=== PATIENT | female | born 1950 | race African-American/Black ===

== ENCOUNTER → 2021-12-02 | Outpatient (CLI) | payer MEDICARE, BC ==
[~2021-12-02] MED LIST: AMLO-186 PO; ATOR20TA58 PO; HYDR-2765 PO; HYDR12.575 PO; HYDR12.58 PO; METF500T16 PO; MULT-650 PO; OMEP40CA7 PO; OXYC-325 PO; OXYC1TAB15 PO; POTA-121 PO; SENN-212 PO; WARF4TAB9 PO
[2021-12-02 09:41] LABS: ALBUMIN 3.3 g/dL (3.4-5.0); CALCIUM 9.4 mg/dL (8.5-10.1); CREATININE 0.9 mg/dL (0.6-1.0); GFR 74.9
[2021-12-02 10:17] LABS: BASO % 1 % (0-3); EOS # 0.1 x10^3/uL (0.0-0.7); EOS % 2 % (0-3); HEMATOCRIT 42.8 % (36.0-47.0); HEMOGLOBIN 13.5 g/dL (12.0-15.5); LYMPH # 1.4 x10^3/uL (1.0-4.8); LYMPH % 24 % (24-48); MEAN CORPUSCULAR HEMOGLOBIN 26 pg (25-35); MEAN CORPUSCULAR HGB CONC 31 g/dL (31-37); MEAN CORPUSCULAR VOLUME 84 fL (79-100); MONO # 0.4 x10^3/uL (0.0-1.1); MONO % 8 % (0-9); NEUT # 3.7 x10^3/uL (1.8-7.7); NEUT % 65 % (31-73); PLATELET COUNT 333 x10^3/uL (140-400); RED BLOOD COUNT 5.09 x10^6/uL (3.50-5.40); RED CELL DISTRIBUTION WIDTH 14.1 % (11.5-14.5); WHITE BLOOD COUNT 5.6 x10^3/uL (4.0-11.0)
[2021-12-02 10:47] LABS: PROTHROMBIN TIME PATIENT 12.2 SEC (11.7-14.0)
--- NOTE | 2021-12-02 13:04 | EKG ---
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
--- NOTE | 2021-12-02 13:23 | RAD ---
EXAMINATION: XR CHEST 2V CLINICAL HISTORY: Preoperative clearance. EXAM DATE/TIME: 12/02/2021 12:30 PM COMPARISON: None FINDINGS: Lines, Tubes, and Devices: None. Cardiomediastinal Silhouette: Normal heart size. Tortuosity of the thoracic aorta. Lungs and Pleura: No evidence of focal airspace consolidation or pleural effusion. Pulmonary vasculat ure unremarkable. Bones and Soft Tissues: Degenerative changes in the thoracic spine. IMPRESSION: No evidence of acute cardiopulmonary abnormality. Electronically signed by: Mitchel Morgan DO (12/02/2021 1:20 PM) [facility]
[2021-12-03 02:14] LABS: HEMOGLOBIN A1C 6.3 % (4.8-5.6)
== END ==
LOC: SURGPAT 12:27
PROVIDERS: ATTEND Orthopaedic Surgery Sports Medicine
DX: Z01.818 Encounter for other preprocedural examination (principal); M17.12 Unilateral primary osteoarthritis, left knee; I10 Essential (primary) hypertension; M47.819 Spondylosis without myelopathy or radiculopathy, site unspecified; Z79.899 Other long term (current) drug therapy
CPT/HCPCS: 36415; 71046; 80048; 82040; 82306; 83036; 85025; 85610; 85651; 85730; 87641; 93005

== ENCOUNTER 2021-12-21 13:46 | Inpatient (IN) | payer MEDICARE, BC ==
[~2021-12-21] VITALS: Ht 170.2 cm; Wt 82.3 kg
[~2021-12-21 13:46] MED LIST changes: -HYDR12.575 PO; -OXYC1TAB15 PO; -WARF4TAB9 PO
[2021-12-21] MEDS ORDERED: fentaNYL PF VIAL 100 MCG/2 ML VIAL IVP ONE (14:15)
[2021-12-21] MEDS ORDERED: KETOROLAC 30 MG/ML VIAL. IVP ONE (14:15)
--- NOTE | 2021-12-21 14:24 | PHYS DOC ---
Past Medical History Past Surgical History: Hysterectomy, Knee Replacement, Tubal ligation, Other Additional Past Surgical Histo: GASTRIC SLEEVE (ANNMARIE CERDA MEDICATION SPECIALIST) Smoking Status: Current Some Day Smoker (ANNMARIE CERDA MEDICATION SPECIALIST) General Adult EDM: Chief Complaint: FEVER HPI: HPI: Patient is a 71 year old female who presents with fever for the last 4 days. She had a knee replacement done by Dr. Meyer on December 02 and was discharged on December 10 to rehab and got home 5 days ago. She states she is unable to keep her fever away. She states she also has a lot of pain and has been taking her Percocet but she is still having pain. States the pain mainly is in the knee itself but down into the dorado area too. Patient states she called the doctor and they stated for her to come into the emergency room to be checked. She does have a scheduled postoperative appointment on this on Thursday. Patient states she last took her Percocet about 1030 this morning. She does have a low- grade fever upon arrival. Patient has a history of hypertension, high cholesterol, DJD, gastric sleeve, hysterectomy, tubal ligation and smoking. (ANNMARIE CERDA MEDICATION SPECIALIST) Review of Systems: Review of Systems: Constitutional: + fever or +chills. [] Eyes: Denies change in visual acuity. [] HENT: Denies nasal congestion or sore throat. [] Respiratory: Denies cough or shortness of breath. [] Cardiovascular: Denies chest pain or edema. [] GI: Denies abdominal pain, nausea, vomiting, bloody stools or diarrhea. [] : Denies dysuria. [] Musculoskeletal: Denies back pain or +left knee joint pain. [] Integument: Denies rash. +redness to medial knee [] Neurologic: Denies headache, focal weakness or sensory changes. [] Endocrine: Denies polyuria or polydipsia. [] Lymphatic: Denies swollen glands. [] Psychiatric: Denies depression or anxiety. [] (ANNMARIE CERDA MEDICATION SPECIALIST) Heart Score: C/O Chest Pain: No (ANNMARIE CERDA APRN) Current Medications: Current Medications Medications (Trade) Dose Ordered Sig/Marek Start Time Stop Time Status Last Admin Dose Admin Fentanyl Citrate (Fentanyl 2ml Vial) 50 mcg 1X ONCE 12/21/21 14:15 12/21/21 14:16 UNV (ANNMARIE CERDA APRN) Allergies: Allergies: Allergies Coded Allergies Type Severity Reaction Last Updated Verified Penicillins Allergy Intermediate 12/10/21 Yes (ANNMARIE CERDA APRN) Physical Exam: PE: Constitutional: Well developed, well nourished, no acute distress, non-toxic ge earance. [] HENT: Normocephalic, atraumatic, bilateral external ears normal, oropharynx moist, no oral exudates, nose normal. [] Eyes: PERRLA, EOMI, conjunctiva normal, no discharge. [] Neck: Normal range of motion, no tenderness, supple, no stridor. [] Cardiovascular:Heart rate regular rhythm, no murmur [] Lungs & Thorax: Bilateral breath sounds clear to auscultation [] Abdomen: Bowel sounds normal, soft, no tenderness, no masses, no pulsatile masses. [] Skin: Warm, dry, medial left knee erythema, no rash. [] Back: No tenderness, no CVA tenderness. [] Extremities: Slight over incision and down into dorado tenderness, no cyanosis, no clubbing, ROM intact but painful, 1+ edema. [] Neurologic: Alert and oriented X 3, normal motor function, normal sensory function, no focal deficits noted. [] Psychologic: Affect normal, judgement normal, mood normal. [] (ANNMARIE CERDA APRN) Current Patient Data: Vital Signs: Vital Signs Date Time Temp Pulse Resp B/P (MAP) Pulse Ox O2 Delivery O2 Flow Rate FiO2 12/21/21 13:50 99.3 98 22 129/68 (88) 95 Room Air 99.3 (ANNMARIE CERDA APRN) EKG: EKG: [] (ANNMARIE CERDA APRN) Radiology/Procedures: Radiology/Procedures: [] Impression: [facility] [address] [place] [address] IMAGING REPORT Signed PATIENT: KIKI MULTANI ACCOUNT: [id number] : 1950 LOCATION: ER AGE: 71 SEX: F EXAM STATUS: REG ER ORD. PHYSICIAN: ANNMARIE CERDA APRN REASON: PAIN POSTOPERATIVELY WITH FEVER PROCEDURE: KNEE LEFT 4V XR KNEE _4 VIEWS WITH PATELLA_LT Clinical Indication: Reason: PAIN POSTOPERATIVELY WITH FEVER / Spl. Instructions: / History: Comparison: Left knee, 2 views December 10, 2021. Findings: There is left hip arthroplasty. The alignment remains anatomic. Surgical drain has been removed. There is no acute fracture. Resurfacing of the patella. There is patellar enthesophyte. There are patellar osteophytes. Patella in anatomic position. No patellar tilt or subluxation on sunrise view. There is mild to moderate joint effusion. IMPRESSION: 1. No acute bone abnormality. 2. Mild to moderate joint effusion. Electronically signed by: George Dominguez MD (12/21/2021 3:19 PM) [facility] DICTATED and SIGNED BY: GEORGE DOMINGUEZ MD DATE: 12/21/21 [id number] [facility] [address], [place] [id number] IMAGING REPORT Signed PATIENT: KIKI MULTANI ACCOUNT: [id number] : 1950 LOCATION: ER AGE: 71 SEX: F EXAM STATUS: REG ER ORD. PHYSICIAN: ANNMARIE CERDA APRN REASON: post knee replacement leg pain PROCEDURE: VENOUS LOWER EXTREMITY LEFT EXAM: Left lower extremity venous Doppler. HISTORY: Left lower extremity pain/swelling. Recent orthopedic surgery, fever. COMPARISON: None. FINDINGS: Grayscale and Doppler analysis of the left lower extremity deep venous system was performed with graded compression and augmentation. The common femoral, greater saphenous, superficial femoral, popliteal and calf veins were assessed. There is no evidence of deep venous thrombosis. IMPRESSION: 1. No evidence of deep venous thrombosis. Electronically signed by: Michelle Salcido MD (12/21/2021 4:21 PM) [id number] DICTATED and SIGNED BY: LAKEISHA SALCIDO MD DATE: 12/21/21 [id number] [facility] [address] [place], [place] [id number] IMAGING REPORT Signed PATIENT: KIKI MULTANI ACCOUNT: [id number] : 1950 LOCATION: ER AGE: 71 SEX: F EXAM STATUS: REG ER ORD. PHYSICIAN: ANNMARIE CERDA APRN REASON: fever PROCEDURE: PORTABLE CHEST 1V EXAM: Chest, single view. HISTORY: Fever COMPARISON: 12/02/2021 FINDINGS: A frontal view of the chest is obtained. There is no infiltrate, pleural effusion or pneumothorax. The heart is normal in size. There is a small hiatal hernia. IMPRESSION: No acute pulmonary finding. Electronically signed by: Laura Simons MD (12/21/2021 4:17 PM) [facility] DICTATED and SIGNED BY: LAURA SIMONS MD DATE: 12/21/21 [id number] (ANNMARIE CERDA APRN) Course & Med Decision Making: Course & Med Decision Making Pertinent Labs and Imaging studies reviewed. (See chart for details) See HPI. Alert and oriented x4. Ambulatory with a walker. Incision line is not reddened and there is no drainage and does not appear infected. She does have some redness that looks like it could be a hematoma to the medial left knee. There does appear to be some warmth to that area also. Also there is so me redness going down over the dorado area. She has a low-grade fever at this time. Pedal pulse strong and present. 1+ edema at the knee. Tenderness just over the incision area and down over the dorado bone. She does have range of motion in the knee but is painful. CRP and ESR elevated. I spoke to Dr. Fuchs and he states to meet the patient but do not start antibiotics as he will drain the knee and send it off for culture tomorrow morning. Patient admitted to the hospitalist. [] (ANNMARIE CERDA APRN) Dragon Disclaimer: Dragon Disclaimer: This electronic medical record was generated, in whole or in part, using a voice recognition dictation system. (ANNMARIE CERDA APRN) Departure Departure Impression: Primary Impression: Post-operative infection Qualified Codes: T81.41XA - Infection following a procedure, superficial incisional surgical site, initial encounter Additional Impression: Fever Qualified Codes: R50.9 - Fever, unspecified Disposition: ADMITTED INPATIENT Admitting Physician: PNUEET (ANNMARIE CERDA APRN) Condition: STABLE Referrals: MELANIE DOS SANTOS MD (PCP) ANNMARIE CERDA APRN Dec 21, 2021 14:24 LAKEISHA LEE MD Dec 22, 2021 16:14
[2021-12-21 14:51] LABS: BASO % 1 % (0-3); EOS # 0.1 x10^3/uL (0.0-0.7); EOS % 1 % (0-3); HEMATOCRIT 33.9 % (36.0-47.0); HEMOGLOBIN 10.9 g/dL (12.0-15.5); LYMPH # 0.7 x10^3/uL (1.0-4.8); LYMPH % 8 % (24-48); MEAN CORPUSCULAR HEMOGLOBIN 27 pg (25-35); MEAN CORPUSCULAR HGB CONC 32 g/dL (31-37); MEAN CORPUSCULAR VOLUME 82 fL (79-100); MONO # 0.6 x10^3/uL (0.0-1.1); MONO % 6 % (0-9); NEUT # 7.7 x10^3/uL (1.8-7.7); NEUT % 85 % (31-73); PLATELET COUNT 500 x10^3/uL (140-400); RED BLOOD COUNT 4.13 x10^6/uL (3.50-5.40); WHITE BLOOD COUNT 9.1 x10^3/uL (4.0-11.0)
[2021-12-21 15:01] LABS: CALCIUM 8.8 mg/dL (8.5-10.1); GFR 66.3; POTASSIUM 3.9 mmol/L (3.5-5.1)
[2021-12-21 15:10] LABS: ALBUMIN 2.5 g/dL (3.4-5.0); ALBUMIN/GLOBULIN RATIO 0.5 (1.0-1.7); C-REACTIVE PROTEIN 144.3 mg/L (0-3.3); TOTAL BILIRUBIN 0.6 mg/dL (0.2-1.0); TOTAL PROTEIN 7.6 g/dL (6.4-8.2)
--- NOTE | 2021-12-21 15:22 | RAD ---
XR KNEE _4 VIEWS WITH PATELLA_LT Clinical Indication: Reason: PAIN POSTOPERATIVELY WITH FEVER / Spl. Instructions: / History: Comparison: Left knee, 2 views December 10, 2021. Findings: There is left hip arthroplasty. The alignment remains anatomic. Surgical drain has been removed. Ther e is no acute fracture. Resurfacing of the patella. There is patellar enthesophyte. There are patella r osteophytes. Patella in anatomic position. No patellar tilt or subluxation on sunrise view. There i s mild to moderate joint effusion. IMPRESSION: 1. No acute bone abnormality. 2. Mild to moderate joint effusion. Electronically signed by: George Dominguez MD (12/21/2021 3:19 PM) [facility]
[2021-12-21 15:36] LABS: INFLUENZA A PATIENT NEGATIVE (NEGATIVE); INFLUENZA B PATIENT NEGATIVE (NEGATIVE)
[2021-12-21 15:50] LABS: BILIRUBIN,URINE NEGATIVE (NEG); CLARITY,URINE CLOUDY; COLOR,URINE YELLOW; NITRITE,URINE NEGATIVE (NEG); PH,URINE 5.5 (<5.0-8.0); PROTEIN,URINE NEGATIVE (NEG-TRACE)
[2021-12-21 15:54] LABS: BACTERIA,URINE FEW /HPF (0-FEW); RBC,URINE 0 /HPF (0-2); WBC,URINE OCC /HPF (0-4)
[2021-12-21] MEDS ORDERED: ACETAMINOPHEN 325 MG TABLET. PO PRN (16:15)
--- NOTE | 2021-12-21 16:20 | RAD ---
EXAM: Chest, single view. HISTORY: Fever COMPARISON: 12/02/2021 FINDINGS: A frontal view of the chest is obtained. There is no infiltrate, pleural effusion or pneumo thorax. The heart is normal in size. There is a small hiatal hernia. IMPRESSION: No acute pulmonary finding. Electronically signed by: Laura Pratt MD (12/21/2021 4:17 PM) [facility]
--- NOTE | 2021-12-21 16:24 | RAD ---
EXAM: Left lower extremity venous Doppler. HISTORY: Left lower extremity pain/swelling. Recent orthopedic surgery, fever. COMPARISON: None. FINDINGS: Grayscale and Doppler analysis of the left lower extremity deep venous system was performed with graded compression and augmentation. The common femoral, greater saphenous, superficial femoral , popliteal and calf veins were assessed. There is no evidence of deep venous thrombosis. IMPRESSION: 1. No evidence of deep venous thrombosis. Electronically signed by: Michelle Salcido MD (12/21/2021 4:21 PM) [facility]ACQUI
--- NOTE | 2021-12-21 16:53 | PDOC2 ---
CONSULT Date of Consult Date of Consult DATE: 12/21/21 TIME: 16:52 History of Present Illness Reason for Visit: Patient is a 71-year old female who presents with fever for the last 4 days. She had a knee replacement done by Dr. Meyer on December 10. She states she is unable to keep her fever away. She states she also has a lot of pain and has been taking her Percocet but she is still having pain. States the pain mainly is in the knee itself but down into the dorado area too. She does have a scheduled postoperative appointment on this on Thursday. She did have a temperature of 99.3 on arrival. Patient has a history of hypertension, high cholesterol, DJD, gastric sleeve, hysterectomy, tubal ligation and smoking. Since admission she has not had a fever. Past Medical History Past Medical History Recent knee replacement; polypharmacy; anticoagulation after her recent surgery, she is on Coumadin; hyperlipidemia; chronic pain; arthritis; hypertension and GERD. Patient has a history of hypertension, high cholesterol, DJD, gastric sleeve, hysterectomy, tubal ligation and smoking. Past Surgical History Past Surgical History: Total knee replacement, Hysterectomy Family History Family History GERD Social History No ALCOHOL: none Lives: with Family Current Problem List Problem List Problems Medical Problems: (1) Fever Status: Acute (2) Post-operative infection Status: Acute Current Medications Current Medications Current Medications Fentanyl Citrate (Fentanyl 2ml Vial) 50 mcg 1X ONCE IVP Last administered on 12/21/21at 14:52; Start 12/21/21 at 14:15; Stop 12/21/21 at 14:16; Status DC Ketorolac Tromethamine (Toradol 30mg Vial) 30 mg 1X ONCE IVP Last administered on 12/21/21at 14:52; Start 12/21/21 at 14:15; Stop 12/21/21 at 14:16; Status DC Acetaminophen (Tylenol) 650 mg PRN Q4HRS PRN PO FEVER > 100.3'F; Start 12/21/21 at 16:15; Stop 12/22/21 at 16:14 Active Scripts Active Percocet 5-325 mg Tablet (Oxycodone HCl/Acetaminophen) 1 Each Tablet 1 Tab PO QIDPRN PRN MDD 4 Tablet(s) Reported Centrum Silver Women Tablet (Multivits-Min/Iron/FA/Lutein) 1 Each Tablet 1 Each PO DAILY Stool Softener Tablet (Sennosides/Docusate Sodium) 1 Each Tablet 1 Each PO DAILY Klor-Con M20 (Potassium Chloride) 20 Meq Tab.er.prt 20 Meq PO DAILY Amlodipine Besylate 5 Mg Tablet 5 Mg PO Hydrochlorothiazide Tablet (Hydrochlorothiazide) 12.5 Mg Tablet 12.5 Mg PO Atorvastatin Calcium 20 Mg Tablet 20 Mg PO Omeprazole 40 Mg Capsule.dr 40 Mg PO Allergies Allergies: Coded Allergies: Penicillins (Verified Allergy, Intermediate, 12/10/21) ROS Musculoskeletal: Yes Joint Pain Physical Exam General: Alert, Cooperative HEENT: Atraumatic Lungs: Normal air movement Heart: Regular rate Abdomen: Soft Extremities: No edema, Normal pulses, Other (Left knee LAURA dressing was removed for exam, and reapplied. The incision is benign. There was report of so me drainage from the Hemovac site but it is a single pinpoint spot of blood and appears benign. The incision is dry and intact and there is no erythema. There is a trace effusion which seems normal postoperative. There is a small amount of faint ecchymosis on the lateral posterior portion of the knee. The calf is soft and nontender and the Homans' sign is negative. Range of motion is fairly limited, only about 30 to 60 degrees.) Skin: No significant lesion Neuro: Normal speech, Normal tone, Sensation intact MUSCULOSKELETAL: Abnormal exam of left (Knee as above) Vitals VITALS Vital Signs Date Time Temp Pulse Resp B/P (MAP) Pulse Ox O2 Delivery O2 Flow Rate FiO2 12/21/21 14:52 18 98 Room Air 12/21/21 13:50 99.3 98 129/68 (88) 99.3 Labs Labs Laboratory Tests Test 12/21/21 14:40 12/21/21 15:10 12/21/21 15:40 White Blood Count 9.1 x10^3/uL (4.0-11.0) Red Blood Count 4.13 x10^6/uL (3.50-5.40) Hemoglobin 10.9 g/dL (12.0-15.5) Hematocrit 33.9 % (36.0-47.0) Mean Corpuscular Volume 82 fL (79-100) Mean Corpuscular Hemoglobin 27 pg (25-35) Mean Corpuscular Hemoglobin Concent 32 g/dL (31-37) Red Cell Distribution Width 14.0 % (11.5-14.5) Platelet Count 500 x10^3/uL (140-400) Neutrophils (%) (Auto) 85 % (31-73) Lymphocytes (%) (Auto) 8 % (24-48) Monocytes (%) (Auto) 6 % (0-9) Eosinophils (%) (Auto) 1 % (0-3) Basophils (%) (Auto) 1 % (0-3) Neutrophils # (Auto) 7.7 x10^3/uL (1.8-7.7) Lymphocytes # (Auto) 0.7 x10^3/uL (1.0-4.8) Monocytes # (Auto) 0.6 x10^3/uL (0.0-1.1) Eosinophils # (Auto) 0.1 x10^3/uL (0.0-0.7) Basophils # (Auto) 0.0 x10^3/uL (0.0-0.2) Erythrocyte Sedimentation Rate 78 (0-25) Sodium Level 143 mmol/L (136-145) Potassium Level 3.9 mmol/L (3.5-5.1) Chloride Level 104 mmol/L (98-107) Carbon Dioxide Level 31 mmol/L (21-32) Anion Gap 8 (6-14) Blood Urea Nitrogen 17 mg/dL (7-20) Creatinine 1.0 mg/dL (0.6-1.0) Estimated GFR (Cockcroft-Gault) 66.3 BUN/Creatinine Ratio 17 (6-20) Glucose Level 120 mg/dL (70-99) Calcium Level 8.8 mg/dL (8.5-10.1) Total Bilirubin 0.6 mg/dL (0.2-1.0) Aspartate Amino Transf (AST/SGOT) 21 U/L (15-37) Alanine Aminotransferase (ALT/SGPT) 18 U/L (14-59) Alkaline Phosphatase 99 U/L (46-116) C-Reactive Protein, Quantitative 144.3 mg/L (0-3.3) Total Protein 7.6 g/dL (6.4-8.2) Albumin 2.5 g/dL (3.4-5.0) Albumin/Globulin Ratio 0.5 (1.0-1.7) Influenza Type A Antigen Negative (NEGATIVE) Influenza Type B Antigen Negative (NEGATIVE) SARS-CoV-2 Antigen (Rapid) Negative (NEGATIVE) Urine Collection Type Unknown Urine Color Yellow Urine Clarity Cloudy Urine pH 5.5 (<5.0-8.0) Urine Specific [place] 1.025 (1.000-1.030) Urine Protein Negative mg/dL (NEG-TRACE) Urine Glucose (UA) Negative mg/dL (NEG) Urine Ketones (Stick) Negative mg/dL (NEG) Urine Blood Negative (NEG) Urine Nitrite Negative (NEG) Urine Bilirubin Negative (NEG) Urine Urobilinogen Dipstick 1.0 mg/dL (0.2 mg/dL) Urine Leukocyte Esterase Negative (NEG) Urine RBC 0 /HPF (0-2) Urine WBC Occ /HPF (0-4) Urine Squamous Epithelial Cells Mod /LPF Urine Bacteria Few /HPF (0-FEW) Urine Mucus Marked /LPF Laboratory Tests Test 12/21/21 14:40 12/21/21 15:10 12/21/21 15:40 White Blood Count 9.1 x10^3/uL (4.0-11.0) Red Blood Count 4.13 x10^6/uL (3.50-5.40) Hemoglobin 10.9 g/dL (12.0-15.5) Hematocrit 33.9 % (36.0-47.0) Mean Corpuscular Volume 82 fL (79-100) Mean Corpuscular Hemoglobin 27 pg (25-35) Mean Corpuscular Hemoglobin Concent 32 g/dL (31-37) Red Cell Distribution Width 14.0 % (11.5-14.5) Platelet Count 500 x10^3/uL (140-400) Neutrophils (%) (Auto) 85 % (31-73) Lymphocytes (%) (Auto) 8 % (24-48) Monocytes (%) (Auto) 6 % (0-9) Eosinophils (%) (Auto) 1 % (0-3) Basophils (%) (Auto) 1 % (0-3) Neutrophils # (Auto) 7.7 x10^3/uL (1.8-7.7) Lymphocytes # (Auto) 0.7 x10^3/uL (1.0-4.8) Monocytes # (Auto) 0.6 x10^3/uL (0.0-1.1) Eosinophils # (Auto) 0.1 x10^3/uL (0.0-0.7) Basophils # (Auto) 0.0 x10^3/uL (0.0-0.2) Erythrocyte Sedimentation Rate 78 (0-25) Sodium Level 143 mmol/L (136-145) Potassium Level 3.9 mmol/L (3.5-5.1) Chloride Level 104 mmol/L (98-107) Carbon Dioxide Level 31 mmol/L (21-32) Anion Gap 8 (6-14) Blood Urea Nitrogen 17 mg/dL (7-20) Creatinine 1.0 mg/dL (0.6-1.0) Estimated GFR (Cockcroft-Gault) 66.3 BUN/Creatinine Ratio 17 (6-20) Glucose Level 120 mg/dL (70-99) Calcium Level 8.8 mg/dL (8.5-10.1) Total Bilirubin 0.6 mg/dL (0.2-1.0) Aspartate Amino Transf (AST/SGOT) 21 U/L (15-37) Alanine Aminotransferase (ALT/SGPT) 18 U/L (14-59) Alkaline Phosphatase 99 U/L (46-116) C-Reactive Protein, Quantitative 144.3 mg/L (0-3.3) Total Protein 7.6 g/dL (6.4-8.2) Albumin 2.5 g/dL (3.4-5.0) Albumin/Globulin Ratio 0.5 (1.0-1.7) Influenza Type A Antigen Negative (NEGATIVE) Influenza Type B Antigen Negative (NEGATIVE) SARS-CoV-2 Antigen (Rapid) Negative (NEGATIVE) Urine Collection Type Unknown Urine Color Yellow Urine Clarity Cloudy Urine pH 5.5 (<5.0-8.0) Urine Specific [place] 1.025 (1.000-1.030) Urine Protein Negative mg/dL (NEG-TRACE) Urine Glucose (UA) Negative mg/dL (NEG) Urine Ketones (Stick) Negative mg/dL (NEG) Urine Blood Negative (NEG) Urine Nitrite Negative (NEG) Urine Bilirubin Negative (NEG) Urine Urobilinogen Dipstick 1.0 mg/dL (0.2 mg/dL) Urine Leukocyte Esterase Negative (NEG) Urine RBC 0 /HPF (0-2) Urine WBC Occ /HPF (0-4) Urine Squamous Epithelial Cells Mod /LPF Urine Bacteria Few /HPF (0-FEW) Urine Mucus Marked /LPF Images Images [facility] [address] [place] [address] IMAGING REPORT Signed PATIENT: KIKI MULTANI ACCOUNT: [id number] : 1950 LOCATION: ER AGE: 71 SEX: F EXAM STATUS: REG ER ORD. PHYSICIAN: ANNMARIE CERDA APRN REASON: PAIN POSTOPERATIVELY WITH FEVER PROCEDURE: KNEE LEFT 4V XR KNEE _4 VIEWS WITH PATELLA_LT Clinical Indication: Reason: PAIN POSTOPERATIVELY WITH FEVER / Spl. Instructions: / History: Comparison: Left knee, 2 views December 10, 2021. Findings: There is left hip arthroplasty. The alignment remains anatomic. Surgical drain has been removed. There is no acute fracture. Resurfacing of the patella. There is patellar enthesophyte. There are patellar osteophytes. Patella in anatomic position. No patellar tilt or sub luxation on sunrise view. There is mild to moderate joint effusion. IMPRESSION: 1. No acute bone abnormality. 2. Mild to moderate joint effusion. Electronically signed by: George Dominguez MD (12/21/2021 3:19 PM) [facility] PATIENT: KIKI MULTANI ACCOUNT: [id number] : 1950 LOCATION: ER AGE: 71 SEX: F EXAM STATUS: REG ER ORD. PHYSICIAN: ANNMARIE CERDA APRN REASON: post knee replacement leg pain PROCEDURE: VENOUS LOWER EXTREMITY LEFT EXAM: Left lower extremity venous Doppler. HISTORY: Left lower extremity pain/swelling. Recent orthopedic surgery, fever. COMPARISON: None. FINDINGS: Grayscale and Doppler analysis of the left lower extremity deep venous system was performed with graded compression and augmentation. The common femoral, greater saphenous, superficial femoral, popliteal and calf veins were a ssessed. There is no evidence of deep venous thrombosis. IMPRESSION: 1. No evidence of deep venous thrombosis. Assessment/Plan Assessment/Plan Her most recent temperature is 98.6. The elevated sed rate and C-reactive pro tein are mildly concerning but these are always somewhat elevated after a major surgery. We checked a UA and a Doppler to make sure those were not sources of the elevated labs. The knee limited range of motion and report of pain are also mildly concerning. The knee does not look infected clinically. I contacted Dr. Meyer through secure messaging and informed him of the patient's admission and my findings. I had plans to aspirate the knee today, and had ordered the local anesthetic to do so, but looking at this knee it appears relatively benign. I'm going to leave the aspiration decision to Dr. Meyer, who has a follow up appointment with the patient tomorrow in the clinic, or if the patient is still in the hospital. I would not start antibiotics. If antibiotics are felt necessary, then I would definitely aspirate the knee. There is low but nonzero risk of introducing infection by aspiration. I discussed all of this with the patient and her family and they agree. SALVADOR GOMEZ MD Dec 21, 2021 16:53
[2021-12-21] MEDS ORDERED: WARF4TAB9 PO (17:41)
[2021-12-21] MEDS ORDERED: HYDR12.575 PO (17:42)
[2021-12-21 18:00] VITALS: BP 101/65
[2021-12-21] MEDS: oxyCODONE/APAP 5/325 1 TAB TABLET PO PRN (19:44)
--- NOTE | 2021-12-21 20:35 | HP ---
DATE OF SERVICE: 12/21/2021 ADMIT DATE: 12/21/2021 CHIEF COMPLAINT: Left knee pain and fevers. HISTORY OF PRESENT ILLNESS: The patient is a pleasant 71-year-old female who had knee replacement on 12/02, about 19 days ago. Over the past 4 days, she started developing some fevers. She apparently did go to rehab for a while and did well there. While in the ER, we have evaluated her and noticed that her knee is having some wtip-ah-bigdokoy joint effusion. I discussed the case with ER physician. We are going to admit the patient and consult Dr. Meyer. PAST MEDICAL HISTORY: Recent knee replacement; polypharmacy; chronic anticoagulation after her recent surgery, she is on Coumadin; hyperlipidemia; chronic pain; arthritis; hypertension and GERD. ALLERGIES: PENICILLIN. FAMILY HISTORY: GERD. SOCIAL HISTORY: She does not drink, smoke or take drugs. She is . 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 She is also retired. MEDICATIONS: Reviewed. She is on Coumadin, atorvastatin, amlodipine, Percocet, potassium chloride, hydrochlorothiazide, senna, omeprazole and vitamins. REVIEW OF SYSTEMS: GENERAL: She complains of fevers. SKIN: No bruising, hair changes or rashes. EYES: No blurred, double or loss of vision. NOSE AND THROAT: No history of nosebleeds, hoarseness or sore throat. HEART: No history of palpitations, chest pain or shortness of breath on exertion. LUNGS: Denies cough, hemoptysis, wheezing or shortness of breath. GASTROINTESTINAL: Denies changes in appetite, nausea, vomiting, diarrhea or constipation. GENITOURINARY: No history of frequency, urgency, hesitancy or nocturia. NEUROLOGIC: Denies history of numbness, tingling, tremor or weakness. PSYCHIATRIC: No history of panic, anxiety or depression. ENDOCRINE: No history of heat or cold intolerance, polyuria or polydipsia. EXTREMITIES: She complains of left knee pain. PHYSICAL EXAMINATION: VITALS: Within normal limits and are stable. GENERAL: No apparent distress. Alert and oriented. HEENT: Normal cephalic atraumatic, external auditory canals are patent EYES: Extraocular muscles are intact, pupils are equally round and reactive to light and accommodation MUSCULOSKELETAL: Well developed, well nourished, good range of motion ENDOCRINE: No thyromegaly was palpated LYMPHATICS: No cervical chain or axillary nodes were noted HEMATOPOIETIC: No bruising NECK: Supple, no JVD, no thyromegaly was noted. LUNGS: Clear to auscultation in all lung connelly without rhonchi or wheezing. HEART: RRR, S1, S2 present. Peripheral pulses intact, no obvious murmurs were noted. ABDOMEN: Soft, nontender. Positive bowel sounds no organomegaly, normal bowel sounds. EXTREMITIES: The left knee is somewhat swollen. There is clean, dry, intact dressing with a LAURA drain in place, which is not currently hooked up. NEUROLOGIC: Normal speech, normal tone. A and O x 3, moves all extremities, no obvious focal deficits. PSYCHIATRIC: Normal affect, normal mood. Stable. SKIN: No ulcerations or rashes, good skin turgor, no jaundice. VASCULAR: Good capillary refill, neurovascular bundle appears to be intact. LABORATORY DATA: Electrolytes are normal. Hemoglobin is 10.9. Urinalysis negative. COVID testing is negative. Chest x-ray is negative. Knee x-ray shows an effusion. ASSESSMENT AND PLAN: Left knee effusion, suspect possible infection versus inflammatory process. The ER doctor spoke with Orthopedic Surgery, they would like to aspirate the joint in the morning. We are going to hold off on antibiotics until the joint is aspirated. PRN pain meds, home meds. DVT prophylaxis. Full code. MARIA G/PAR/AMI DR: MARIA G/rolf TID: [id number]
[2021-12-21] MEDS: ATORVASTATIN CALCIUM 20 MG TABLET PO SCH (20:44)
[2021-12-22] MEDS ORDERED: DOCUSATE SODIUM 100 MG CAPSULE. PO PRN (00:15)
[2021-12-22] MEDS ORDERED: SENNOSIDES/DOCUSATE 8.6/50MG TABLET. PO PRN (00:15)
[2021-12-22 07:00] VITALS: BP 111/58
[2021-12-22] MEDS: MULTIVITAMIN with MINERAL TABLET. PO SCH (09:39)
[2021-12-22] MEDS: hydroCHLOROthiazide 12.5 MG CAPSULE PO SCH (09:39)
[2021-12-22] MEDS: POTASSIUM CHLORIDE 20 MEQ TABLET.ER. PO SCH (09:40)
[2021-12-22] MEDS: oxyCODONE/APAP 5/325 1 TAB TABLET PO PRN ×3 (09:47→20:33)
[2021-12-22 11:00] VITALS: BP 107/62
--- NOTE | 2021-12-22 12:22 | PDOC ---
[employer] PROGRESS NOTE Date of Service DOS: DATE: 12/22/21 TIME: 12:20 Chief Complaint Chief Complaint Left knee swelling pain (? Infection versus inflammation in parentheses) Recent knee replacement; polypharmacy; chronic anticoagulation after her recent surgery, she is on Coumadin; hyperlipidemia; chronic pain; arthritis; hypertension and GERD. History of Present Illness History of Present Illness 12/22/2021 Patient seen and examined Discussed with RN Chart reviewed The left knee is still painful swollen and warm to touch Awaiting Ortho input Vitals/I&O Vitals/I&O: Vital Signs Date Time Temp Pulse Resp B/P (MAP) Pulse Ox O2 Delivery O2 Flow Rate FiO2 12/22/21 09:47 99 12/22/21 09:39 82 111/58 12/22/21 07:00 98.4 20 Room Air 98.4 I & O 12/21/21 12/21/21 12/22/21 15:00 23:00 07:00 Intake Total 100 ml Balance 100 ml Physical Exam General: Alert Heart: Regular rate Lungs: Clear Abdomen: Normal bowel sounds Extremities: Other (Left knee swollen and warm with clean dry intact dressing and Miguel Angel drain (not hooked up currently)) Skin: No rashes Labs Labs: Laboratory Tests Test 12/21/21 14:40 12/21/21 15:10 12/21/21 15:40 White Blood Count 9.1 x10^3/uL (4.0-11.0) Red Blood Count 4.13 x10^6/uL (3.50-5.40) Hemoglobin 10.9 g/dL (12.0-15.5) Hematocrit 33.9 % (36.0-47.0) Mean Corpuscular Volume 82 fL (79-100) Mean Corpuscular Hemoglobin 27 pg (25-35) Mean Corpuscular Hemoglobin Concent 32 g/dL (31-37) Red Cell Distribution Width 14.0 % (11.5-14.5) Platelet Count 500 x10^3/uL (140-400) Neutrophils (%) (Auto) 85 % (31-73) Lymphocytes (%) (Auto) 8 % (24-48) Monocytes (%) (Auto) 6 % (0-9) Eosinophils (%) (Auto) 1 % (0-3) Basophils (%) (Auto) 1 % (0-3) Neutrophils # (Auto) 7.7 x10^3/uL (1.8-7.7) Lymphocytes # (Auto) 0.7 x10^3/uL (1.0-4.8) Monocytes # (Auto) 0.6 x10^3/uL (0.0-1.1) Eosinophils # (Auto) 0.1 x10^3/uL (0.0-0.7) Basophils # (Auto) 0.0 x10^3/uL (0.0-0.2) Erythrocyte Sedimentation Rate 78 (0-25) Sodium Level 143 mmol/L (136-145) Potassium Level 3.9 mmol/L (3.5-5.1) Chloride Level 104 mmol/L (98-107) Carbon Dioxide Level 31 mmol/L (21-32) Anion Gap 8 (6-14) Blood Urea Nitrogen 17 mg/dL (7-20) Creatinine 1.0 mg/dL (0.6-1.0) Estimated GFR (Cockcroft-Gault) 66.3 BUN/Creatinine Ratio 17 (6-20) Glucose Level 120 mg/dL (70-99) Calcium Level 8.8 mg/dL (8.5-10.1) Total Bilirubin 0.6 mg/dL (0.2-1.0) Aspartate Amino Transf (AST/SGOT) 21 U/L (15-37) Alanine Aminotransferase (ALT/SGPT) 18 U/L (14-59) Alkaline Phosphatase 99 U/L (46-116) C-Reactive Protein, Quantitative 144.3 mg/L (0-3.3) Total Protein 7.6 g/dL (6.4-8.2) Albumin 2.5 g/dL (3.4-5.0) Albumin/Globulin Ratio 0.5 (1.0-1.7) Influenza Type A Antigen Negative (NEGATIVE) Influenza Type B Antigen Negative (NEGATIVE) SARS-CoV-2 Antigen (Rapid) Negative (NEGATIVE) Urine Collection Type Unknown Urine Color Yellow Urine Clarity Cloudy Urine pH 5.5 (<5.0-8.0) Urine Specific [place] 1.025 (1.000-1.030) Urine Protein Negative mg/dL (NEG-TRACE) Urine Glucose (UA) Negative mg/dL (NEG) Urine Ketones (Stick) Negative mg/dL (NEG) Urine Blood Negative (NEG) Urine Nitrite Negative (NEG) Urine Bilirubin Negative (NEG) Urine Urobilinogen Dipstick 1.0 mg/dL (0.2 mg/dL) Urine Leukocyte Esterase Negative (NEG) Urine RBC 0 /HPF (0-2) Urine WBC Occ /HPF (0-4) Urine Squamous Epithelial Cells Mod /LPF Urine Bacteria Few /HPF (0-FEW) Urine Mucus Marked /LPF Assessment and Plan Assessmemt and Plan Problems Medical Problems: (1) Fever Status: Acute (2) Post-operative infection Status: Acute Left knee swelling pain (? Infection versus inflammation in parentheses) Recent knee replacement; polypharmacy; chronic anticoagulation after her recent surgery, she is on Coumadin; hyperlipidemia; chronic pain; arthritis; hypertension and GERD. Plan Awaiting Ortho input Continue wound care Considering antibiotics if Ortho agrees Home meds DVT prophylaxis Full code PT OT Encourage p.o. intake Trend lab Comment Review of Relevant I have reviewed the following items robbi (where applicable) has been applied. Medications: Current Medications Medications (Trade) Dose Ordered Sig/Marek Route PRN Reason Start Time Stop Time Status Last Admin Dose Admin Fentanyl Citrate (Fentanyl 2ml Vial) 50 mcg 1X ONCE IVP 12/21/21 14:15 12/21/21 14:16 DC 12/21/21 14:52 Ketorolac Tromethamine (Toradol 30mg Vial) 30 mg 1X ONCE IVP 12/21/21 14:15 12/21/21 14:16 DC 12/21/21 14:52 Amlodipine Besylate (Norvasc) 5 mg DAILY PO 12/22/21 09:00 12/22/21 09:39 Atorvastatin Calcium (Lipitor) 20 mg QHS PO 12/21/21 21:00 12/21/21 20:44 Potassium Chloride (Klor-Con) 20 meq DAILY PO 12/22/21 09:00 12/22/21 09:40 Multivitamins (Thera M Plus) 1 tab DAILY PO 12/22/21 09:00 12/22/21 09:39 Hydrochlorothiazide (Microzide) 12.5 mg DAILY PO 12/22/21 09:00 12/22/21 09:39 Oxycodone/ Acetaminophen (Percocet 5/325) 1 tab QIDPRN PRN PO PAIN 12/21/21 17:45 12/22/21 09:47 Docusate Sodium (Colace) 100 mg PRN DAILY PRN PO HARD STOOLS 12/22/21 00:15 12/22/21 00:24 Senna/Docusate Sodium (Senna Plus) 1 tab PRN BID PRN PO CONSTIPATION 12/22/21 00:15 12/22/21 09:39 Justifications for Admission Other Justification MAKENNA LOERA III DO Dec 22, 2021 12:21
[2021-12-22] MEDS ORDERED: LIDOCAINE 1% PF 5 ML VIAL. INJ ONE (12:45)
[2021-12-22 14:47] LABS: PROTHROMBIN TIME PATIENT 22.2 SEC (11.7-14.0)
[2021-12-22 15:00] VITALS: BP 108/61
[2021-12-22] MEDS ORDERED: WARFARIN 4 MG TABLET. PO ONE (16:00)
[2021-12-22 19:00] VITALS: BP 108/73
[2021-12-22] MEDS: ATORVASTATIN CALCIUM 20 MG TABLET PO SCH (20:33)
[2021-12-22] MEDS ORDERED: oxyCODONE/APAP 5/325 1 TAB TABLET PO PRN (20:45)
[2021-12-22 23:00] VITALS: BP 103/59
[2021-12-23 07:00] VITALS: BP 102/58
[2021-12-23 07:53] LABS: PROTHROMBIN TIME PATIENT 22.6 SEC (11.7-14.0)
[2021-12-23] MEDS: MULTIVITAMIN with MINERAL TABLET. PO SCH (08:28)
[2021-12-23] MEDS: hydroCHLOROthiazide 12.5 MG CAPSULE PO SCH (08:29)
[2021-12-23] MEDS: POTASSIUM CHLORIDE 20 MEQ TABLET.ER. PO SCH (08:29)
[2021-12-23] MEDS ORDERED: POLYETHYLENE GLYCOL 3350 17 GM PACKET. PO SCH (09:00)
[2021-12-23] MEDS ORDERED: OXYC1TAB15 PO (10:37)
--- NOTE | 2021-12-23 10:38 | SNU/HH DC ---
DISCHARGE WITH HOME HEALTH DISCHARGE INFORMATION: Final Diagnosis: Problems Medical Problems: (1) Fever Status: Acute (2) Post-operative infection Status: Acute Condition on Discharge: Stable CODE STATUS: Code Status: Full HOME HEALTH: Face to Face: I certify this patient is under my care and that I, or a nurse practitioner or physician's assistant administrator working with me, had a face to face encounter that meets the physician face to face encounter requirements with this patient on []. Medical Complications: DJD, Other (Recent knee replacement) Penitent[facility] For: Assess & Educate Safety RN For Eval/Treatment: Yes Physical Therapy For: Evalulation/Treatment Occupational Therapy For: Evaluation/Treatment Home Health Aide For: Self-care DIRECTOR OUTCOMES For: Community Resources Pt Meets Homebound Status: Unsteady balance w/ amb, POST DISCHARGE ORDERS: Activity Instructions for Disc: Progressive ambulation Weight Bearing Status after Di: No restrictions Bathing Instructions: Shower-keep dressing dry, No Tub Bath until see DIET AFTER DISCHARGE: Cardiac Wound/Incision Care: Ice to area for comfort, Keep wound elevated, Do not change dressing, Reinforce dressing PRN TREATMENT/EQUIPMENT ORDERS: Adaptive Equipment Issued: None CERTIFICATION STATEMENT: Certification Statement: Certification Statement: Based on the above finding, I certify that this patient is confined to the home and needs intermittent residential care, physical therapy and/or speech therapy, or continues to need occupational therapy.~ This patient is under my care, and I have initiated the establishment of the plan of care.~ This patient will be followed by myself or a community physician who will periodically review the plan of care. Home Meds Active Scripts Oxycodone/Apap 5-325 (PERCOCET 5-325 MG TABLET ) 1 Each Tablet, 1 TAB PO PRN Q4HRS PRN for PAIN for 7 Days, #14 TAB Prov:CASTLE,NIAL K III DO 12/23/21 Oxycodone HCl/Acetaminophen (Percocet 5-325 mg Tablet) 1 Each Tablet, 1 TAB PO QIDPRN PRN for PAIN MDD 4 Tablet(s), #15 TAB 0 Refills Prov:ZUHAIR MCINTYRE MD 12/17/21 Reported Medications Hydrochlorothiazide (HYDROCHLOROTHIAZIDE CAPSULE ) 12.5 Mg Capsule, 12.5 MG PO DAILY for DIURETIC, CAP 0 Refills 12/21/21 Warfarin Sodium (JANTOVEN) 4 Mg Tablet, 1 TAB PO DAILY for blood thinner 12/21/21 Multivits-Min/Iron/FA/Lutein (Centrum Silver Women Tablet) 1 Each Tablet, 1 EACH PO DAILY for supplement, TAB 12/03/21 Sennosides/Docusate Sodium (Stool Softener Tablet) 1 Each Tablet, 1 EACH PO DAILY for prevent constipation, TAB 12/03/21 Potassium Chloride (KLOR-CON M20) 20 Meq Tab.er.prt, 20 MEQ PO DAILY for K= supplement, TAB.SR 12/03/21 Amlodipine Besylate (AMLODIPINE BESYLATE) 5 Mg Tablet, 5 MG PO 03/10/14 Hydrochlorothiazide (HYDROCHLOROTHIAZIDE TABLET) 12.5 Mg Tablet, 12.5 MG PO 03/10/14 Atorvastatin Calcium (ATORVASTATIN CALCIUM) 20 Mg Tablet, 20 MG PO 03/10/14 Omeprazole (OMEPRAZOLE) 40 Mg Capsule.dr, 40 MG PO 03/10/14 MAKENNA LOERA III DO Dec 23, 2021 10:38
--- NOTE | 2021-12-23 10:54 | PDOC ---
[employer] PROGRESS NOTE Date of Service DOS: DATE: 12/23/21 TIME: 10:53 Chief Complaint Chief Complaint Left knee swelling pain (? Infection versus inflammation in parentheses) Recent knee replacement; polypharmacy; chronic anticoagulation after her recent surgery, she is on Coumadin; hyperlipidemia; chronic pain; arthritis; hypertension and GERD. History of Present Illness History of Present Illness 12/23/2021 Patient seen and examined Discussed with RN Chart reviewed Discussed with Dr. Lopez He is no check on the patient this afternoon 12/22/2021 Patient seen and examined Discussed with RN Chart reviewed The left knee is still painful swollen and warm to touch Awaiting Ortho input Vitals/I&O Vitals/I&O: Vital Signs Date Time Temp Pulse Resp B/P (MAP) Pulse Ox O2 Delivery O2 Flow Rate FiO2 12/23/21 08:29 76 102/58 12/23/21 08:20 Room Air 12/23/21 07:00 98.6 20 95 98.6 12/22/21 19:00 8.0 I & O 12/22/21 12/22/21 12/23/21 15:00 23:00 07:00 Intake Total 300 ml Balance 300 ml Physical Exam General: Alert, Cooperative Heart: Regular rate Lungs: Clear Abdomen: Soft Extremities: No edema, Normal pulses, Other (Left knee LAURA dressing was removed for exam, and reapplied. The incision is benign. There was report of some drainage from the Hemovac site but it is a single pinpoint spot of blood and appears benign. The incision is dry and intact and there is no erythema. There is a trace effusion which seems normal postoperative. There is a small amount of faint ecchymosis on the lateral posterior portion of the knee. The calf is soft and nontender and the Homans' sign is negative. Range of motion is fairly limited, only about 30 to 60 degrees.) Skin: No significant lesion Labs Labs: Laboratory Tests Test 12/22/21 14:20 12/23/21 05:55 Prothrombin Time 22.2 SEC (11.7-14.0) 22.6 SEC (11.7-14.0) Prothromb Time International Ratio 2.0 (0.8-1.1) 2.0 (0.8-1.1) Assessment and Plan Assessmemt and Plan Problems Medical Problems: (1) Fever Status: Acute (2) Post-operative infection Status: Acute Left knee swelling pain (? Infection versus inflammation in parentheses) Recent knee replacement; polypharmacy; chronic anticoagulation after her recent surgery, she is on Coumadin; hyperlipidemia; chronic pain; arthritis; hypertension and GERD. Plan Awaiting Ortho input but will probably discharge this afternoon For now continue the following; Continue wound detention meds DVT prophylaxis Full code PT OT Encourage p.o. intake Trend lab Comment Review of Relevant I have reviewed the following items robbi (where applicable) has been applied. Medications: Current Medications Medications (Trade) Dose Ordered Sig/Marek Route PRN Reason Start Time Stop Time Status Last Admin Dose Admin Warfarin Sodium (Coumadin) 4 mg 1X WARF ONCE PO 12/22/21 16:00 12/22/21 16:01 DC 12/22/21 17:31 Oxycodone/ Acetaminophen (Percocet 5/325) 1 tab PRN Q4HRS PRN PO PAIN 12/22/21 20:45 12/23/21 08:28 Polyethylene Glycol (miraLAX PACKET) 17 gm DAILY PO 12/23/21 09:00 12/23/21 08:29 Justifications for Admission Other Justification MAKENNA LOERA III DO Dec 23, 2021 10:54
[2021-12-23 11:00] VITALS: BP 113/64
--- NOTE | 2021-12-23 11:24 | DS ---
DATE OF DISCHARGE: 12/23/2021 ADMITTING DIAGNOSIS: Left knee swelling and pain, possible infection. DISCHARGE DIAGNOSES: Resolving left knee swelling; resolving pain; recent knee replacement; anticoagulation; hyperlipidemia; chronic pain; arthritis; hypertension; and gastroesophageal reflux disease. CONSULTS: Orthopedics. PROCEDURES: None. HOSPITAL COURSE: The patient is a pleasant, -aged female who had her knee replaced a few weeks ago and basically presented with a warm, swollen knee. We were concerned it might be infected. I observed her over the weekend. I spoke with Dr. Meyer this morning. He is going to come to see the patient today at noon, but thinks she might be able to go home. We plan to discharge if okay with him. DISPOSITION: Home. ACTIVITY: As tolerated. DIET: Low sodium. MEDICATIONS: Please see the MRAD. Percocet 5 q.4 hours p.r.n., amlodipine 5 a day, atorvastatin 20 a day, hydrochlorothiazide 12.5 a day, vitamins, omeprazole 40 a day, potassium chloride 20 a day, senna, and Coumadin 4 a day. TOTAL TIME: 32 minutes. MARIA G/CORWIN DR: MARIA G/rolf TID: [id number]
--- NOTE | 2021-12-23 11:34 | NUR ---
Pharmacy Warfarin Dosing Note S:Pharmacy consulted to assist with anticoagulation therapy started with target INR: 1.6 - 2.5 O:KIKI MULTANI is a 71 year old F with TKA LABS: Last INR: 2.0 Last HGB: 10.9 Last HCT: 33.9 Last PLT: 500 Last dose of 4 mg given on 12/22/21 at 1731 Previous Regimen: Vitamin K given: N Drug Interaction Changes: Ongoing Drug Interactions: A:INR of 2.0 is within desired range. Target range for this patient is: 1.6 - 2.5 P: Warfarin dose: 4 mg Today at 1600 Bridge Therapy: None Next INR due tomorrow. Pharmacy anticoagulation service will continue to follow. Silverio Moreau [facility], 12/23/21 [id number]
--- NOTE | 2021-12-23 12:04 | NUR ---
SW following. Discussed with RN, pt from home, room air, cardiac diet, rapid COVID-19 negative. Ortho following knee. Discharge order for home after seen by ortho. RN advised no SW needs at this time. SW will continue to follow.
--- NOTE | 2021-12-23 12:53 | PDOC ---
ORTHO PROGRESS NOTES DATE: 12/23/21 TIME: 12:52 Subjective Patient tells me she is having very little pain after knee surgery. She was admitted after a provider told her they were concerned about infection in her knee. She has been up and walking around with a walker. She has not noticed any drainage at the dressing. Vitals Vital Signs Date Time Temp Pulse Resp B/P (MAP) Pulse Ox O2 Delivery O2 Flow Rate FiO2 12/23/21 11:00 98.8 86 18 113/64 (80) 95 Room Air 98.8 12/22/21 19:00 8.0 Labs Laboratory Tests Test 12/21/21 14:40 12/21/21 15:10 12/21/21 15:40 12/22/21 14:20 White Blood Count 9.1 x10^3/uL (4.0-11.0) Red Blood Count 4.13 x10^6/uL (3.50-5.40) Hemoglobin 10.9 g/dL (12.0-15.5) Hematocrit 33.9 % (36.0-47.0) Mean Corpuscular Volume 82 fL (79-100) Mean Corpuscular Hemoglobin 27 pg (25-35) Mean Corpuscular Hemoglobin Concent 32 g/dL (31-37) Red Cell Distribution Width 14.0 % (11.5-14.5) Platelet Count 500 x10^3/uL (140-400) Neutrophils (%) (Auto) 85 % (31-73) Lymphocytes (%) (Auto) 8 % (24-48) Monocytes (%) (Auto) 6 % (0-9) Eosinophils (%) (Auto) 1 % (0-3) Basophils (%) (Auto) 1 % (0-3) Neutrophils # (Auto) 7.7 x10^3/uL (1.8-7.7) Lymphocytes # (Auto) 0.7 x10^3/uL (1.0-4.8) Monocytes # (Auto) 0.6 x10^3/uL (0.0-1.1) Eosinophils # (Auto) 0.1 x10^3/uL (0.0-0.7) Basophils # (Auto) 0.0 x10^3/uL (0.0-0.2) Erythrocyte Sedimentation Rate 78 (0-25) Sodium Level 143 mmol/L (136-145) Potassium Level 3.9 mmol/L (3.5-5.1) Chloride Level 104 mmol/L (98-107) Carbon Dioxide Level 31 mmol/L (21-32) Anion Gap 8 (6-14) Blood Urea Nitrogen 17 mg/dL (7-20) Creatinine 1.0 mg/dL (0.6-1.0) Estimated GFR (Cockcroft-Gault) 66.3 BUN/Creatinine Ratio 17 (6-20) Glucose Level 120 mg/dL (70-99) Calcium Level 8.8 mg/dL (8.5-10.1) Total Bilirubin 0.6 mg/dL (0.2-1.0) Aspartate Amino Transf (AST/SGOT) 21 U/L (15-37) Alanine Aminotransferase (ALT/SGPT) 18 U/L (14-59) Alkaline Phosphatase 99 U/L (46-116) C-Reactive Protein, Quantitative 144.3 mg/L (0-3.3) Total Protein 7.6 g/dL (6.4-8.2) Albumin 2.5 g/dL (3.4-5.0) Albumin/Globulin Ratio 0.5 (1.0-1.7) Influenza Type A Antigen Negative (NEGATIVE) Influenza Type B Antigen Negative (NEGATIVE) SARS-CoV-2 Antigen (Rapid) Negative (NEGATIVE) Urine Collection Type Unknown Urine Color Yellow Urine Clarity Cloudy Urine pH 5.5 (<5.0-8.0) Urine Specific [place] 1.025 (1.000-1.030) Urine Protein Negative mg/dL (NEG-TRACE) Urine Glucose (UA) Negative mg/dL (NEG) Urine Ketones (Stick) Negative mg/dL (NEG) Urine Blood Negative (NEG) Urine Nitrite Negative (NEG) Urine Bilirubin Negative (NEG) Urine Urobilinogen Dipstick 1.0 mg/dL (0.2 mg/dL) Urine Leukocyte Esterase Negative (NEG) Urine RBC 0 /HPF (0-2) Urine WBC Occ /HPF (0-4) Urine Squamous Epithelial Cells Mod /LPF Urine Bacteria Few /HPF (0-FEW) Urine Mucus Marked /LPF Prothrombin Time 22.2 SEC (11.7-14.0) Prothromb Time International Ratio 2.0 (0.8-1.1) Test 12/23/21 05:55 Prothrombin Time 22.6 SEC (11.7-14.0) Prothromb Time International Ratio 2.0 (0.8-1.1) Laboratory Tests Test 12/22/21 14:20 12/23/21 05:55 Prothrombin Time 22.2 SEC (11.7-14.0) 22.6 SEC (11.7-14.0) Prothromb Time International Ratio 2.0 (0.8-1.1) 2.0 (0.8-1.1) Notes She is awake and alert, lying in bed. Normal motor and sensation are present in her left lower extremity. Incisional wound VAC in place with no drainage. Mild effusion is present at her knee. Expected warmth is also present around the area Problems: (1) History of left knee replacement Assessment and Plan I did provide reassurance, I do not think this represents an infection but rather normal postoperative course. I am okay if she goes home. She should continue PT. I will see her back in a week. I asked her to take her temperature at home as well. PAULINA MILLARD II, MD Dec 23, 2021 12:53
--- NOTE | 2021-12-23 13:00 | NUR ---
Pt left unit at 1300 by wheelchair via private vehicle, accompanied by and sister. Pt's IV removed without complications, VSS. Discharge paperwork discussed with pt. Pt verbalizes understanding, additional questions addressed.
[2021-12-23] MEDS ORDERED: WARFARIN 4 MG TABLET. PO SCH (16:00)
== END 2021-12-23 13:03 | disposition home or self-care (01) | DRG 862 ==
LOC: ER 13:46 → 5 NORTH 15:57
PROVIDERS: ADMIT Internal Medicine; ATTEND Internal Medicine
DX: T81.41XA Infection following a procedure, superficial incisional surgical site, initial encounter (principal); E43 Unspecified severe protein-calorie malnutrition; M25.462 Effusion, left knee; E78.00 Pure hypercholesterolemia, unspecified; E78.5 Hyperlipidemia, unspecified; I10 Essential (primary) hypertension; Z96.652 Presence of left artificial knee joint; G89.29 Other chronic pain; K21.9 Gastro-esophageal reflux disease without esophagitis; M19.90 Unspecified osteoarthritis, unspecified site; Z20.822 Contact with and (suspected) exposure to COVID-19; Z68.28 Body mass index [BMI] 28.0-28.9, adult; Z79.01 Long term (current) use of anticoagulants; Z87.891 Personal history of nicotine dependence; Z90.710 Acquired absence of both cervix and uterus
CPT/HCPCS: 36415; 71045; 73564; 80053; 81001; 85025; 85610; 85651; 86140; 87040; 87428; 93971; 96374; 96375; J1885; J3010; 99285-25; G0378